=== PATIENT | male | born 1940 | race Caucasian/White ===

== ENCOUNTER → 2025-02-11 16:09 | Outpatient (REF) | payer OTHER, SELFPAY ==
[2025-02-11 17:14] LABS: Hematocrit 31.6 % (39.0-52.0); Hemoglobin 10.2 g/dL (13.0-18.0)
[2025-02-11 17:18] LABS: ALT (SGPT) 21 U/L (0-50); AST (SGOT) 24 U/L (17-59); Albumin 3.9 g/dl (3.5-5.0); Alkaline Phosphatase 71 U/L (38-126); Blood Urea Nitrogen 66 mg/dl (9-20); Calcium 9.7 mg/dl (8.4-10.2); Carbon Dioxide 21 mmol/L (22-30); Chloride 110 mmol/L (98-107); Glucose 144 mg/dl (70-99); Potassium 5.7 mmol/L (3.5-5.1); Sodium 141 mmol/L (135-145); Total Bilirubin 0.3 mg/dl (0.2-1.3); Total Protein 7.3 g/dl (6.3-8.2); eGFR 25.02
[2025-02-11 17:22] LABS: Protein/creatinine Ratio 0.8; Urine Albumin 1+ (Neg - Trace); Urine Bilirubin Negative (Negative); Urine Character Cloudy (Clear); Urine Color Straw; Urine Glucose Negative (Negative); Urine Ketone Negative (Negative); Urine Leukocyte 2+ (Negative); Urine Nitrite Positive (Negative); Urine Occult Blood 3+ (Negative); Urine Protein 23 mg/dl; Urine Urobilinogen Negative (Neg - 1+)
[2025-02-11 17:47] LABS: Urine Amorphous Seen
[2025-02-11 17:48] LABS: Urine Bacteria Moderate (Negative); Urine Squamous Cell 0-2 /LPF (Few)
== END ==
LOC: REG 16:09
PROVIDERS: ATTENDING PHYSICIAN Internal Medicine Nephrology
DX: I10 Essential (primary) hypertension (principal); N17.9 Acute kidney failure, unspecified; N18.4 Chronic kidney disease, stage 4 (severe)
CPT/HCPCS: 36415; 80053; 81003; 81015; 82570; 84100; 84156; 85014; 85018